=== PATIENT | female | born 1965 | race Caucasian/White ===

== ENCOUNTER 2019-07-08 13:29 | Emergency (ER) | payer OTHER ==
[2019-07-08 13:52] VITALS: BP 122/75
--- NOTE | 2019-07-08 14:09 | UC ---
Skin Complaint HPI - HPI Summary HPI Summary: Pt is accompanied by healthcare proxy and power of real estate attorney due to TBI and retrograde amnesia. Pt has Excoriation disorder and has an exacerbation of sores scattered across her body. Pt states she can not control her "picking" of sores. - History of Current Complaint Chief Complaint: UCSkin Time Seen by Provider: 07/08/19 13:45 Stated Complaint: RASH Hx Obtained From: Patient Hx Last Menstrual Period: n/a ?: No Onset/Duration: Gradual Onset, Lasting Weeks, Still Present, Worse Since - onset Skin Exposure Onset/Duration: Weeks Ago Timing: Constant Onset Severity: Mild Current Severity: Moderate Pain Intensity: 3 Location: Diffuse, Generalized Character: Pruritus, Redness, Painful Aggravating Factor(s): Touch Associated Signs & Symptoms: Positive: Tenderness - Allergy/Home Medications Allergies/Adverse Reactions: Allergies Allergy/AdvReac Type Severity Reaction Status Date / Time cephalexin Allergy Rash Verified 07/08/19 13:45 Sulfa (Sulfonamide Allergy Facial Verified 07/08/19 13:45 Antibiotics) Swelling Home Medications: Home Medications Acetaminophen [Acetaminophen Extra Strength] 1,000 mg PO DAILY 07/08/19 [ History Confirmed 07/08/19] Escitalopram * [Lexapro *] 20 mg PO DAILY 07/08/19 [History Confirmed 07/08/19] Gabapentin TAB(NF) [Neurontin 600 mg TAB(NF)] 600 mg PO TID 07/08/19 [History Confirmed 07/08/19] Metoprolol Succinate XL TAB* [Toprol XL TAB*] 50 mg PO DAILY 07/08/19 [History Confirmed 07/08/19] Naproxen 500 mg PO DAILY 07/08/19 [History Confirmed 07/08/19] hydrOXYzine HCL TAB* [Atarax 25 MG TAB*] 50 mg PO BID 07/08/19 [History Confirmed 07/08/19] risperiDONE [Risperidone] 0.5 mg PO BEDTIME 07/08/19 [History Confirmed 07/08/19 ] PMH/Surg Hx/FS Hx/Imm Hx Previously Healthy: Yes - TBI hx Psychological History: Other - TBI - Surgical History Surgical History: Yes Surgery Procedure, Year, and Place: hysterectomy. R ankle. L knee _ Xs2. R elbow - FX. plate in neck - FUSION C6-7. Lt SHOULDER - RTC - Family History Known Family History: Positive: Hypertension, Other - cancer - Social History Occupation: Disabled Lives: Alone Alcohol Use: Occasionally Alcohol Amount: 1-2 beers/week Substance Use Type: None Substance Use Comment - Amount & Last Used: oxycodone and fentanyl Smoking Status (MU): Heavy Every Day Tobacco Smoker Type: Cigarettes Amount Used/How Often: > 1 PPD Length of Time of Smoking/Using Tobacco: Since Age 16 Have You Smoked in the Last Year: Yes Household Exposure Type: Cigarettes - Immunization History Most Recent Influenza Vaccination: October 2015 Vaccination Up to Date: Yes Review of Systems All Other Systems Reviewed And Are Negative: Yes Constitutional: Positive: Negative Skin: Positive: Other - sores in various stages of healing Eyes: Positive: Negative ENT: Positive: Negative Respiratory: Positive: Negative Cardiovascular: Positive: Negative Gastrointestinal: Positive: Negative Genitourinary: Positive: Negative Motor: Positive: Negative Neurovascular: Positive: Negative Musculoskeletal: Positive: Negative Neurological: Positive: Negative Psychological: Positive: Negative Is Patient Immunocompromised?: No Physical Exam Triage Information Reviewed: Yes Appearance: Well-Appearing Vital Signs: Initial Vital Signs Temp 98 F 07/08/19 13:38 Pulse 84 07/08/19 13:38 Resp 18 07/08/19 13:38 BP 122/75 07/08/19 13:38 Pulse Ox 99 07/08/19 13:38 Vital Signs Reviewed: Yes Eye Exam: Normal ENT: Positive: Hearing grossly normal Dental: Positive: Other: - missing teeth Neck exam: Normal Respiratory: Positive: No respiratory distress Musculoskeletal Exam: Normal Neurological Exam: Normal Psychological Exam: Normal Skin Exam: Other - generalized scattered sores Course/Dx - Differential Diagnoses - Skin Complaint Differential Diagnoses: Cellulitis, Impetigo, MRSA - Diagnoses Provider Diagnosis: Excoriation (skin-picking) disorder Discharge ED - Sign-Out/Discharge Documenting (check all that apply): Patient Departure All imaging exams completed and their final reports reviewed: No Studies - Discharge Plan Condition: Stable Disposition: HOME Prescriptions: DOXYcycline CAP(*) [DOXYcycline 100MG CAP(*)] 100 mg PO Q12H #20 cap Patient Education Materials: Acute Wounds (ED) Referrals: Kymberly Stauffer MD [Primary Care Provider] - As Soon As Possible Jacob Chacon MD [Medical Doctor] - Chery Barrett MD [Medical Doctor] - Additional Instructions: Excoriation disorder (also referred to as chronic skin-picking or dermatillomania) is a mental illness related to obsessive-compulsive disorder. It is characterized by repeated picking at ones own skin which results in skin lesions and causes significant disruption in ones life Please follow up with your PCP and a lehr tender. Other consideration to consider, hypnotherapy and mental health provider. Please keep your skin well hydrated with the Lotion or generic version of Cetaphil. - Billing Disposition and Condition Condition: STABLE Disposition: Home - Attestation Statements Provider Attestation: Per institutional requirements, I have reviewed the chart, however, I was not consulted specifically or made aware of this patient by the midlevel provider. I did not personally evaluate, interact with , or disposition this patient.
== END 2019-07-08 14:22 | disposition home or self-care (01) ==
LOC: UCCORT 13:29
DX: F42.4 Excoriation (skin-picking) disorder (principal); Z87.820 Personal history of traumatic brain injury; R41.2 Retrograde amnesia; Z88.1 Allergy status to other antibiotic agents; Z88.2 Allergy status to sulfonamides; F17.210 Nicotine dependence, cigarettes, uncomplicated
CPT/HCPCS: 99212; G0463